=== PATIENT | female | born 1955 | race Caucasian/White ===

== ENCOUNTER 2016-12-30 10:03 | Day surgery (SDC) | payer BC ==
--- NOTE | ~2016-12-30 | OP ---
Record Of Operation [facility] [address] [place]. [address] NAME: KRISTINE CASTRO : 59 STATUS : REG [facility] [place] PAT#: [id number] AGE: 61 ADM/REG DATE : 12/30/16 MR#: [id number] REPORT SERV DATE: 12/30/16 DICTATED BY: BETO CHATTERJEE DATE: 12/30/16 REPORT STATUS : Draft TRANSCRIBED BY: MODMikaela DATE: 12/30/16 DATE OF PROCEDURE: 12/30/2016 PREOPERATIVE DIAGNOSIS: Left ureteral stones. POSTOPERATIVE DIAGNOSIS: Left ureteral stones. PROCEDURE: Left extracorporeal shockwave lithotripsy. ANESTHESIA: General. SPECIMENS: None. ESTIMATED BLOOD LOSS: None. DISPOSITION: To PACU in good condition. HISTORY: A 61-year-old woman who presented to my office with left flank pain. Workup revealed a left distal 6 mm ureteral stone with a smaller ureteral stone proximal to this. When she presented this morning, it looks like some of her renal stones, which were very small, had fallen down on top of this leading fragment as well. She presents today for the above-stated procedure. PROCEDURE IN DETAIL: After consent was obtained, the patient was taken to the operating room and placed on the Dornier lithotripsy table in the supine position. Her stones were located, but the patient was unable to tolerate the compression band while awake. MAC anesthetic was induced and the compression band was placed. Before we could line up stones, however, anesthesia was finding it difficult to keep her saturations up. It appears that the patient suffers from some undiagnosed sleep apnea. It was decided at that time that the best option would be to place an LMA and convert to a general anesthetic. This was then performed by the Department of Anesthesia. We were then able to position the patient's leading fragment on two planes. She then received 3000 shocks at a maximum energy level of 5 and rate of 90 from an anterior approach. She tolerated the procedure well. We spent all of our shocks on the leading 6 mm fragment. She was awakened from anesthetic, extubated, and taken to recovery room. Plan will be to send her home today and have her follow up in one to two weeks with a KUB. All of her postoperative prescriptions were given to her at her office visit. We also recommend that she see her primary care physician and have a discussion regarding sleep study. ISABELLA/MAGGIE Beto Record Of Operation [facility] [address] [place] [address] NAME: KRISTINE CASTRO : 59 STATUS : REG [facility] [place] PAT#: [id number] AGE: 61 ADM/REG DATE : 12/30/16 MR#: [id number] REPORT SERV DATE: 12/30/16 DICTATED BY: BETO CHATTERJEE DATE: 12/30/16 REPORT STATUS : Draft TRANSCRIBED BY: MAGGIE DATE: 12/30/16 Israel Chatterjee / [id number] CC: Israel Madison M.D.
[~2016-12-30 10:03] MED LIST: BYSTOLIC PO; BYSTOLIC2.5 MG PO; LISINOPRIL PO; LORTAB 5 PO; MACROBID PO; PR25 PO; PRIN10 PO; PYR100B PO; VESICARE10 MG PO
[2016-12-30 11:03] LABS: ASCORBIC ACID (UR NOT ORDER) NEG (NEG); BILIRUBIN, URINE NEGATIVE (NEG); KETONE, URINE NEGATIVE (NEG); LEUKOCYTE ESTERASE(NOT OR NEG (NEG); WBC (NOT ORDERED) (RFLEX) 5 (0-5)
[2016-12-30 11:14] LABS: BASOPHILS 0.3 %; BASOPHILS ABSOLUTE 0.02 10/3/uL (0.0-0.16); EOSINOPHILS 1.3 %; EOSINOPHILS ABSOLUTE 0.09 10/3/uL (0.0-0.53); HEMATOCRIT 43.5 % (36.0-48.0); HEMOGLOBIN 15.2 g/dL (12.0-16.0); IMMATURE GRANULOCYTES 0.1 %; IMMATURE GRANULOCYTES ABSOLUTE 0.01 10/3/uL (0.0-0.11); LYMPHOCYTES 19.6 %; LYMPHOCYTES ABSOLUTE 1.35 10/3/uL (0.67-4.30); MANUAL DIFF NO %; MEAN CORPUS HGB CONC 34.9 g/dL (32.0-36.0); MEAN CORPUSCULAR VOLUME 94.4 fL (80-100); MEAN PLATELET VOLUME 9.7 fL (9.2-13.0); MONOCYTES 8.6 %; MONOCYTES ABSOLUTE 0.59 10/3/uL (0.21-1.20); NEUTROPHILS 70.1 %; NEUTROPHILS ABSOLUTE 4.82 10/3/uL (2.02-8.40); PLATELET COUNT 209 10/3/uL (150-400); RBC DISTRIBUTION WIDTH 12.7 % (12.0-16.0); RED CELL COUNT 4.61 10/6/uL (4.0-5.6); WHITE BLOOD CELLS 6.9 10/3/uL (4.5-10.5)
[2016-12-30 11:26] LABS: CALCIUM, SERUM 9.3 MG/DL (8.5-10.4); CHLORIDE, SERUM 105 MMOL/L (96-112); GFR AFRICAN AMERICAN 81 ML/MIN (>=60); GFR NON AFRICAN AMERICAN 70 ML/MIN (>=60); GLUCOSE, SERUM 108 MG/DL (60-99); PFA (COL/EPI) 113 SEC (72-180); SODIUM, SERUM 142 MMOL/L (135-148)
[2016-12-30 11:28] LABS: BUN (BLOOD UREA NITROGEN) 19 MG/DL (6-23); CO2 (CARBON DIOXIDE) 32 MMOL/L (24-34); POTASSIUM, SERUM 4.9 MMOL/L (3.5-5.3)
== END 2016-12-30 17:19 | disposition home or self-care (01) ==
LOC: SDC 10:03
PROVIDERS: Urology
PROC: 0TF7XZZ Fragmentation in Left Ureter, External Approach (ICD-10-PCS; principal; 2016-12-30 11:30)
DX: N20.1 Calculus of ureter (principal); I10 Essential (primary) hypertension; F41.9 Anxiety disorder, unspecified; Z79.899 Other long term (current) drug therapy; Z98.890 Other specified postprocedural states; Z87.442 Personal history of urinary calculi
CPT/HCPCS: 50590; 74000; 80048; 81001; 84550; 85025; 85576; 93005; A9270-GY; J2250; J2405; J3010